=== PATIENT | female | born 1935 | race Caucasian/White ===

== ENCOUNTER 2017-11-26 13:12 | Observation (INO) ==
[2017-11-26] MEDS ORDERED: Acetaminophen 325 MG Tablet PO ONE (13:29)
--- NOTE | 2017-11-26 14:00 | CT ---
EXAM DATE: 11/26/2017 1:55 PM EDT AGE/SEX: 82 years / Female INDICATIONS: Headache for three cantor CLINICAL DATA: This is the patient's initial encounter. Patient reports that signs and symptoms have been present for 1 day and indicates a pain score of 5/10. MEDICAL/SURGICAL HISTORY: Alzheimer's disease. Hypertension. Diabetes. None. RADIATION DOSE: 45.48 CTDI (mGy) COMPARISON: No prior exams available for comparison. TECHNIQUE: CT of the head without contrast. Using automated exposure control and adjustment of the mA and/or kV according to patient size, radiation dose was kept as low as reasonably achievable to ob tain optimal diagnostic quality images. DICOM format image data is available electronically for revi ew and comparison. FINDINGS: Cerebrum: There is impressive diffuse atrophy. The ventricles are normal for age. No evidence of mi dline shift, mass lesion, hemorrhage or acute infarction. No extraaxial fluid collections are seen. Posterior Fossa: The cerebellum and brainstem are intact. The 4th ventricle is midline. The cerebe llopontine angle is unremarkable. Extracranial: The visualized portion of the orbits is intact. Skull: The calvaria is intact. No evidence of skull fracture. CONCLUSION: 1. Diffuse atrophy. No evidence of hemorrhage, edema, mass or mass effect. . Electronically signed by: Brant Mojica MD 11/26/2017 1:58 PM EDT
--- NOTE | 2017-11-26 14:34 | ED ---
HPI General Chief complaint: Headache Stated complaint: Head Pain Time Seen by Provider: 11/26/17 13:29 Source: patient and EMS Mode of arrival: EMS Limitations: other (Short-term memory loss, Alzheimer's disease.) History of Present Illness HPI narrative: Patient presents from an assisted living facility with a complaint of headache. EMS stated that they were called because of her elevated blood pressure. Patient has been normotensive for them. Patient does report that she has had a dull, frontal and occipital headache for several days. She denies any nausea, vomiting, dizziness, visual changes, weakness. Patient states that she has not been given anything for the pain. Patient reports her pain is a 6 out of 10. She denies any history of headaches. Symptom onset was gradual, symptoms are moderate. Unknown exacerbating factors. Patient has a past medical history significant for type 2 diabetes, hyperlipidemia, hypertension, Alzheimer's, depression. Related Data Home Medications Medication Instructions Recorded Confirmed aspirin 81 mg PO DAILY 11/26/17 11/26/17 cholecalciferol (vitamin D3) 2,000 unit PO DAILY 11/26/17 11/26/17 [Vitamin D3] cyanocobalamin (vitamin B-12) 1,000 mcg PO DAILY 11/26/17 11/26/17 [Vitamin B-12] donepezil 10 mg PO DAILY 11/26/17 11/26/17 escitalopram oxalate 20 mg PO DAILY 11/26/17 11/26/17 glipizide 5 mg PO DAILY 11/26/17 11/26/17 insulin glargine [Lantus Solostar 20 unit SUB-Q HS 11/26/17 11/26/17 U-100 Insulin] linagliptin [Tradjenta] 5 mg PO DAILY 11/26/17 11/26/17 memantine 10 mg PO BID 11/26/17 11/26/17 metformin 500 mg PO BID 11/26/17 11/26/17 nitrofurantoin monohyd/m-cryst 100 mg PO BID 11/26/17 11/26/17 pioglitazone 30 mg PO DAILY 11/26/17 11/26/17 ramipril 10 mg PO BID 11/26/17 11/26/17 simvastatin 20 mg PO QPM 11/26/17 11/26/17 Allergies Allergy/AdvReac Type Severity Reaction Status Date / Time No Known Allergies Allergy Verified 09/18/18 19:06 Review of Systems ROS: all other systems reviewed are negative [facility] Medical History Medical History Alzheimer's dementia (Acute) Diabetes (Acute) High cholesterol (Acute) Hypertension (Acute) Urinary tract infection (Acute) Social History Social History Substance History: No History of Abuse Smoking Status: Former smoker Tobacco Type: Cigarettes How Often Do You Have a Drink Containing Alcohol: Never Immunization History Tetanus Immunization: <5 Years Hx Influenza Vaccine This Season: No Exam Narrative Exam Narrative: GENERAL: SKIN: Focused skin assessment warm/dry. HEAD: Atraumatic. Normocephalic. EYES: Pupils equal and round. No scleral icterus. No injection or drainage. ENT: No nasal bleeding or discharge. Mucous membranes pink and moist. NECK: Trachea midline. No JVD. CARDIOVASCULAR: Regular rate and rhythm. No murmur appreciated. RESPIRATORY: No accessory muscle use. Clear to auscultation. Breath sounds equal bilaterally. GASTROINTESTINAL: Abdomen soft, non-tender, nondistended. Hepatic and splenic margins not palpable. MUSCULOSKELETAL: No obvious deformities. No clubbing. No cyanosis. No edema. NEUROLOGICAL: Awake and alert. No obvious cranial nerve deficits. Motor grossly within normal limits. Normal speech. PSYCHIATRIC: Appropriate mood and affect; insight and judgment normal. Course Initial Documented Vital Signs Temperature 98.5 F 11/26/17 13:25 Pulse Rate 55 L 11/26/17 13:25 Respiratory Rate 18 11/26/17 13:25 Blood Pressure 169/77 H 11/26/17 13:25 Pulse Oximetry 98 11/26/17 13:25 Last Documented Vital Signs Temperature 98.5 F 11/26/17 13:25 Pulse Rate 60 11/26/17 18:48 Respiratory Rate 18 11/26/17 18:48 Blood Pressure 184/74 H 11/26/17 18:48 Pulse Oximetry 97 11/26/17 18:19 Medical Decision Making AIDAN Attestation AIDAN supervised visit: Yes Attestation: The history, exam, and medical decision-making in the associated mid-level provider note were completed with my assistance. I reviewed and agree with the findings presented. I attest that I had a [id number] encounter with the patient on the same day, and personally performed and documented my assessment and findings in the medical record. *My assessment and Findings: 82-year-old woman with confusion, and high blood pressures in her nursing facility. I spoke with Dr. Lnae, prior to this patient's arrival. Patient has had multiple ED visits for the same. Now with recurrent high blood pressures up to 220 systolic reportedly associated with some confusion and headache. Initial blood pressures here were unremarkable despite no initial treatment. Dr. Hedrick is been titrating her medications. Initial normal workup. Spoke with Dr. Lane, and we spoke with the nursing supervisor insulation at the nursing facility again. They would like her observe due to the fluctuations in the blood pressure. Following this conversation blood pressure again was elevated in the 200s systolic. Patient will be admitted for observation. MDM Narrative Medical decision making narrative: Patient is an 82-year-old female presenting to the emergency department from her senior living facility for evaluation of hypertension and a headache. Labs and imaging ordered and pending. Patient's vital signs are stable on arrival to the emergency department. Per EMS report patient has been normotensive since they arrived. CT scan the brain shows atrophy, no acute findings. Labs reviewed, no acute abnormalities. This was discussed with son who stated that he wanted Dr. Hedrick called because patient had been to the emergency department 4 times over the weekend. Called the director radio at the [facility] who stated that patient had become more confused as recently which was 1 of the reasons patient was sent to the emergency room to several times. She also stated that prior to the confusion started patient was not sleeping at night for several days. The confusion was noticed by her daughter after the days of insomnia. Patient's is also under hospice care at a different facility which seems to be upsetting patient. They sent her because her blood pressure was elevated however her medications were adjusted yesterday, the director radio stated the patient's blood pressure was 157 systolic today prior to coming to the emergency department. Patient appears to be responding well to the blood pressure medication change. My attending physician spoke with Dr. Lane, due to the repetitive presentation to the emergency department patient will be admitted under observation for further evaluation. Medical Screen Exam Complete: Yes Emergency Medical Condition: Yes Differential Diagnosis Differential Diagnosis: TIA versus hemorrhage versus metabolic abnormality versus Alzheimer's versus hypertensive urgency versus other Lab Data Lab results reviewed: Yes I reviewed the patient's lab results. Result diagrams: 11/26/17 13:59 11/26/17 13:59 Lab Results 11/26/17 11/26/17 11/26/17 Range/Units 13:59 13:59 13:59 WBC 9.2 (4.0-11.0) th/mm3 RBC 4.62 (4.00-5.30) mil/mm3 Hgb 13.2 (11.6-15.3) gm/dL Hct 41.2 (35.0-46.0) % MCV 89.2 (80.0-100.0) fL MCH 28.7 (27.0-34.0) pg MCHC 32.1 (32.0-36.0) % RDW 14.8 (11.6-17.2) % Plt Count 186 (150-450) th/mm3 MPV 11.3 H (7.0-11.0) fL Neut % (Auto) 69.8 (16.0-70.0) % Lymph % (Auto) 17.7 (9.0-44.0) % [place] % (Auto) 5.8 (0.0-8.0) % Eos % (Auto) 5.9 H (0.0-4.0) % Baso % (Auto) 0.8 (0.0-2.0) % Neut # (Auto) 6.4 (1.8-7.7) th/mm3 Lymph # (Auto) 1.6 (1.0-4.8) th/mm3 [place] # (Auto) 0.5 (0.0-0.9) th/mm3 Eos # (Auto) 0.5 H (0.0-0.4) th/mm3 Baso # (Auto) 0.1 (0.0-0.2) th/mm3 WBC Differential . Differential Comment Auto diff final PT 10.5 (9.8-11.6) sec INR 1.0 Ratio APTT 26.6 (24.3-30.1) sec Sodium 144 (136-145) meq/L Potassium 4.1 (3.5-5.1) meq/L Chloride 110 H (98-107) meq/L Carbon Dioxide 27.9 (21.0-32.0) meq/L Anion Gap 6 (5-15) meq/L BUN 10 (7-18) mg/dL Creatinine 0.95 (0.50-1.00) mg/dL Estimated GFR 57 L (>89) mL/min Random Glucose 103 (74-106) mg/dL Calcium 9.0 (8.5-10.1) mg/dL Total Bilirubin 0.5 (0.2-1.0) mg/dL AST 17 (15-37) U/L ALT 16 (10-53) U/L Alkaline Phosphatase 65 (45-117) U/L Total Protein 7.1 (6.4-8.2) g/dL Albumin 3.7 (3.4-5.0) g/dL Urine Color (Yellw/Straw) Urine Clarity (Clear) Urine pH (5.0-8.5) Ur Specific [place] (1.002-1.035) Urine Protein (Neg-Trace) mg/dL Urine Glucose (UA) (Negative) mg/dL Urine Ketones (Negative) mg/dL Urine Occult Blood (Negative) Urine Nitrate (Negative) Urine Bilirubin (Negative) Urine Urobilinogen (Less than 2) mg/dL Ur Leukocyte Esterase (Negative) Urine RBC (0-3) /hpf Urine WBC (0-5) /hpf Ur Squamous Epith Cells (0-5) /hpf Urine Mucus (Occasional) /lpf Micro UA Comment Ur Microscopic Review Urine Culture Comments 11/26/17 Range/Units 14:55 WBC (4.0-11.0) th/mm3 RBC (4.00-5.30) mil/mm3 Hgb (11.6-15.3) gm/dL Hct (35.0-46.0) % MCV (80.0-100.0) fL MCH (27.0-34.0) pg MCHC (32.0-36.0) % RDW (11.6-17.2) % Plt Count (150-450) th/mm3 MPV (7.0-11.0) fL Neut % (Auto) (16.0-70.0) % Lymph % (Auto) (9.0-44.0) % [place] % (Auto) (0.0-8.0) % Eos % (Auto) (0.0-4.0) % Baso % (Auto) (0.0-2.0) % Neut # (Auto) (1.8-7.7) th/mm3 Lymph # (Auto) (1.0-4.8) th/mm3 [place] # (Auto) (0.0-0.9) th/mm3 Eos # (Auto) (0.0-0.4) th/mm3 Baso # (Auto) (0.0-0.2) th/mm3 WBC Differential Differential Comment PT (9.8-11.6) sec INR Ratio APTT (24.3-30.1) sec Sodium (136-145) meq/L Potassium (3.5-5.1) meq/L Chloride (98-107) meq/L Carbon Dioxide (21.0-32.0) meq/L Anion Gap (5-15) meq/L BUN (7-18) mg/dL Creatinine (0.50-1.00) mg/dL Estimated GFR (>89) mL/min Random Glucose (74-106) mg/dL Calcium (8.5-10.1) mg/dL Total Bilirubin (0.2-1.0) mg/dL AST (15-37) U/L ALT (10-53) U/L Alkaline Phosphatase (45-117) U/L Total Protein (6.4-8.2) g/dL Albumin (3.4-5.0) g/dL Urine Color Sally (Yellw/Straw) Urine Clarity Hazy H (Clear) Urine pH 5.0 (5.0-8.5) Ur Specific [place] 1.023 (1.002-1.035) Urine Protein Negative (Neg-Trace) mg/dL Urine Glucose (UA) Negative (Negative) mg/dL Urine Ketones 20 (Negative) mg/dL Urine Occult Blood Negative (Negative) Urine Nitrate Negative (Negative) Urine Bilirubin Negative (Negative) Urine Urobilinogen 2.0 H (Less than 2) mg/dL Ur Leukocyte Esterase Negative (Negative) Urine RBC Less than 1 (0-3) /hpf Urine WBC 1 (0-5) /hpf Ur Squamous Epith Cells 2 (0-5) /hpf Urine Mucus Few H (Occasional) /lpf Micro UA Comment Culture not ind Ur Microscopic Review Not Reportable Urine Culture Comments Culture not ind Imaging Data Radiologist's impression: Head CT 11/26/17 13:29 CONCLUSION: 1. Diffuse atrophy. No evidence of hemorrhage, edema, mass or mass effect. . Discharge Plan Discharge Disposition Patient Disposition: 30 Still Patient Discharge Condition Condition: Stable Discharge Details Diagnosis: Hypertension Physicians Team ED Provider: Brant Vizcaino ED Midlevel Provider: Sammi Blanca Primary Care Provider: UNKNOWN, Attending Provider: Raciel Álvarez Status ED Status: Admitted Observation Patient
[2017-11-26 15:22] LABS: Baso # (Auto) 0.1 th/mm3 (0.0-0.2); Baso % (Auto) 0.8 % (0.0-2.0); Eos # (Auto) 0.5 th/mm3 (0.0-0.4); Eos % (Auto) 5.9 % (0.0-4.0); Hematocrit 41.2 % (35.0-46.0); Hemoglobin 13.2 gm/dL (11.6-15.3); Lymph # (Auto) 1.6 th/mm3 (1.0-4.8); Lymph % (Auto) 17.7 % (9.0-44.0); Mean Corpuscular HGB Conc 32.1 % (32.0-36.0); Mean Corpuscular Hemoglobin 28.7 pg (27.0-34.0); Mean Corpuscular Volume 89.2 fL (80.0-100.0); Mean Platelet Volume 11.3 fL (7.0-11.0); Mono # (Auto) 0.5 th/mm3 (0.0-0.9); Mono % (Auto) 5.8 % (0.0-8.0); Neut # (Auto) 6.4 th/mm3 (1.8-7.7); Neut % (Auto) 69.8 % (16.0-70.0); Platelet Count 186 th/mm3 (150-450); Red Blood Count 4.62 mil/mm3 (4.00-5.30); Red Cell Distribution Width 14.8 % (11.6-17.2); White Blood Count 9.2 th/mm3 (4.0-11.0)
[2017-11-26 15:28] LABS: Bilirubin,Urine Negative (Negative); Clarity,Urine Hazy (Clear); Color,Urine Amber (Yellw/Straw); Glucose,Urine (UA) Negative (Negative); Leukocyte Esterase,Urine Negative (Negative); Mucus,Urine Few /lpf (Occasional); Nitrite,Urine Negative (Negative); Specific Gravity,Urine 1.023 (1.002-1.035); Squamous Epithelial Cell,Urine 2 /hpf (0-5)
[2017-11-26 15:39] LABS: Activated Partial Thrombo Time 26.6 sec (24.3-30.1); Prothrombin Time 10.5 sec (9.8-11.6)
[2017-11-26 15:49] LABS: Alanine Aminotransferase 16 U/L (10-53); Albumin 3.7 g/dL (3.4-5.0); Anion Gap 6 meq/L (5-15); Aspartate Aminotransferase 17 U/L (15-37); Blood Urea Nitrogen 10 mg/dL (7-18); Carbon Dioxide 27.9 meq/L (21.0-32.0); Chloride 110 meq/L (98-107); Glomerular Filtration Rate 57 mL/min (>89); Glucose,Random 103 mg/dL (74-106); Potassium 4.1 meq/L (3.5-5.1); Sodium 144 meq/L (136-145)
[2017-11-26 15:50] LABS: Alkaline Phosphatase 65 U/L (45-117); Total Protein 7.1 g/dL (6.4-8.2)
[2017-11-26] MEDS ORDERED: Dextrose 50% in Water 50 ML Vial IV.PUSH PRN (17:35)
[2017-11-26] MEDS ORDERED: Enoxaparin Inj 40 MG/0.4 ML Syringe SQ SCH (20:00)
--- NOTE | 2017-11-26 20:38 | P.HP ---
History of Present Illness Service: [facility] Primary Care Physician: UNKNOWN History of Present Illness: 82-year-old female with a past medical history significant for Alzheimer's dementia, diabetes, hypertension and hyperlipidemia presents to the emergency department for the evaluation of a headache. The patient denies any associated blurry vision. She reports the headache starts in the frontal region and radiates down to her jaw. She denies any confusion or weakness. She was hypertensive to 200/78 on arrival to the emergency department. No chest pain or shortness of breath. No abdominal pain. Review of Systems All other systems reviewed negative except as stated in [facility] - History History Provided By: Patient - Medical History Medical History: Medical History (Last Reviewed 11/26/17 @ 20:30 by Thea Irvin MD) Alzheimer's dementia Diabetes High cholesterol Hypertension Urinary tract infection - Surgical History Surgical History: Surgical History (Last Updated 11/26/17 @ 20:30 by Thea Irvin MD) No history of previous surgery - Family History Family History: Family History (Last Updated 11/26/17 @ 20:30 by Thea Irvin MD) Other Family history normal - Tobacco History Smoking Status: Former smoker Tobacco Type: Cigarettes - Alcohol History How Often Do You Have a Drink Containing Alcohol: Never - Substance Use History Substance History: No History of Abuse - Immunization History Tetanus Immunization: <5 Years Hx Influenza Vaccine This Season: No Medications and Allergies Active Medications: Active Medications Al Hydroxide/Mg Hydroxide (Milk Of Gary Liq) 30 ml PO Q12H PRN PRN Reason: Mild Constipation Aspirin (Aspirin Chew) 81 mg PO DAILY [facility] Clonidine HCl (Catapres) 0.1 mg PO Q6H PRN PRN Reason: SBP>160, DBP>90 Last Admin: 11/26/17 18:19 Dose: 0.1 mg Dextrose (D50w Vial) 50 ml IV.PUSH UNSCH PRN PRN Reason: PER HYPOGLYCEMIA PROTOCOL Donepezil HCl (Aricept) 10 mg PO DAILY [facility] Enoxaparin Sodium (Lovenox Inj) 40 mg SQ Q24H [facility] Last Admin: 11/26/17 20:10 Dose: 40 mg Escitalopram Oxalate (Lexapro) 20 mg PO DAILY [facility] Glucagon (Glucagon Inj) 1 mg OTHER PRN PRN PRN Reason: for Hypoglycemia Protocol Insulin Aspart (Novolog Insulin Correctional Sugar Inj) 0 unit SQ ACHS [facility]; Protocol Memantine (Namenda) 10 mg PO BID [facility] Ondansetron HCl (Zofran Inj) 4 mg IV.PUSH Q6H PRN PRN Reason: NAUSEA OR VOMITING Ramipril (Altace) 10 mg PO BID [facility] Sodium Chloride (Ns Flush) 2 ml IV.FLUSH PRN PRN PRN Reason: FLUSH AFTER USING IV ACCESS Allergies Allergy/AdvReac Type Severity Reaction Status Date / Time No Known Allergies Allergy Verified 11/26/17 19:06 Home Medications Medication Instructions Recorded Confirmed Type aspirin 81 mg PO DAILY 11/26/17 11/26/17 History cholecalciferol (vitamin D3) 2,000 unit PO DAILY 11/26/17 11/26/17 History [Vitamin D3] cyanocobalamin (vitamin B-12) 1,000 mcg PO DAILY 11/26/17 11/26/17 History [Vitamin B-12] donepezil 10 mg PO DAILY 11/26/17 11/26/17 History escitalopram oxalate 20 mg PO DAILY 11/26/17 11/26/17 History glipizide 5 mg PO DAILY 11/26/17 11/26/17 History insulin glargine [Lantus Solostar 20 unit SUB-Q HS 11/26/17 11/26/17 History U-100 Insulin] linagliptin [Tradjenta] 5 mg PO DAILY 11/26/17 11/26/17 History memantine 10 mg PO BID 11/26/17 11/26/17 History metformin 500 mg PO BID 11/26/17 11/26/17 History nitrofurantoin monohyd/m-cryst 100 mg PO BID 11/26/17 11/26/17 History pioglitazone 30 mg PO DAILY 11/26/17 11/26/17 History ramipril 10 mg PO BID 11/26/17 11/26/17 History simvastatin 20 mg PO QPM 11/26/17 11/26/17 History Exam Vital signs: Vital Signs 11/26/17 13:25 11/26/17 13:59 11/26/17 17:12 Temperature 98.5 F Pulse Rate 55 L 62 Respiratory Rate 18 18 Blood Pressure 167/77 H 200/78 H Pulse Oximetry 98 97 98 11/26/17 18:19 11/26/17 18:48 11/26/17 19:50 Temperature Pulse Rate 60 60 Respiratory Rate 20 18 Blood Pressure 190/84 H 184/74 H 167/72 H Pulse Oximetry 97 Intake & Output 11/26/17 11/26/17 11/27/17 06:59 18:59 06:59 Weight 110 kg Narrative: Gen.: No acute distress Head: Normocephalic. Atraumatic. EENT: Pupils equal round and reactive to light. Nose without drainage. Airway intact. Throat without injection. Cardiovascular: Regular rate and rhythm. No murmurs, rubs or gallops. Respiratory: Lungs clear to auscultation bilaterally. No wheezes or rhonchi. Abdomen: Soft, nontender, nondistended. No peritoneal signs. Musculoskeletal: No gross deformities. No edema. Skin: No obvious rashes or erythema. Neuro: Sensory and motor grossly intact. Cranial nerves II through XII grossly intact. Results - Labs CBC & Chem 7: 11/26/17 13:59 11/26/17 13:59 Labs: Laboratory Results - last 24 hr 11/26/17 11/26/17 11/26/17 13:59 13:59 13:59 WBC 9.2 RBC 4.62 Hgb 13.2 Hct 41.2 MCV 89.2 MCH 28.7 MCHC 32.1 RDW 14.8 Plt Count 186 MPV 11.3 H Neut % (Auto) 69.8 Lymph % (Auto) 17.7 [place] % (Auto) 5.8 Eos % (Auto) 5.9 H Baso % (Auto) 0.8 Neut # (Auto) 6.4 Lymph # (Auto) 1.6 [place] # (Auto) 0.5 Eos # (Auto) 0.5 H Baso # (Auto) 0.1 WBC Differential . Differential Comment Auto diff final PT 10.5 INR 1.0 APTT 26.6 Sodium 144 Potassium 4.1 Chloride 110 H Carbon Dioxide 27.9 Anion Gap 6 BUN 10 Creatinine 0.95 Estimated GFR 57 L Random Glucose 103 Calcium 9.0 Total Bilirubin 0.5 AST 17 ALT 16 Alkaline Phosphatase 65 Total Protein 7.1 Albumin 3.7 Urine Color Urine Clarity Urine pH Ur Specific [place] Urine Protein Urine Glucose (UA) Urine Ketones Urine Occult Blood Urine Nitrate Urine Bilirubin Urine Urobilinogen Ur Leukocyte Esterase Urine RBC Urine WBC Ur Squamous Epith Cells Urine Mucus Micro UA Comment Ur Microscopic Review Urine Culture Comments 11/26/17 14:55 WBC RBC Hgb Hct MCV MCH MCHC RDW Plt Count MPV Neut % (Auto) Lymph % (Auto) [place] % (Auto) Eos % (Auto) Baso % (Auto) Neut # (Auto) Lymph # (Auto) [place] # (Auto) Eos # (Auto) Baso # (Auto) WBC Differential Differential Comment PT INR APTT Sodium Potassium Chloride Carbon Dioxide Anion Gap BUN Creatinine Estimated GFR Random Glucose Calcium Total Bilirubin AST ALT Alkaline Phosphatase Total Protein Albumin Urine Color Sally Urine Clarity Hazy H Urine pH 5.0 Ur Specific [place] 1.023 Urine Protein Negative Urine Glucose (UA) Negative Urine Ketones 20 Urine Occult Blood Negative Urine Nitrate Negative Urine Bilirubin Negative Urine Urobilinogen 2.0 H Ur Leukocyte Esterase Negative Urine RBC Less than 1 Urine WBC 1 Ur Squamous Epith Cells 2 Urine Mucus Few H Micro UA Comment Culture not ind Ur Microscopic Review Not Reportable Urine Culture Comments Culture not ind - Imaging Impressions Head CT 11/26/17 13:29 CONCLUSION: 1. Diffuse atrophy. No evidence of hemorrhage, edema, mass or mass effect. . Caprini VTE Risk Assessment Caprini VTE Risk Assessment: Moderate/High Risk (score >= 2) Caprini Risk Assessment Model: Point Value = 1 Point Value = 2 Point Value = 3 Point Value = 5 Age 41-60 Minor surgery BMI > 25 kg/m2 Swollen legs Varicose veins or History of unexplained or recurrent spontaneous Oral contraceptives or hormone replacement Sepsis (< 1 month) Serious lung disease, including pneumonia (< 1 month) Abnormal pulmonary function Acute myocardial infarction Congestive heart failure (< 1 month) History of inflammatory bowel disease Medical patient at bed rest Age 61-74 Arthroscopic surgery Major open surgery (> 45 min) Laparoscopic surgery (> 45 min) Malignancy Confined to bed (> 72 hours) Immobilizing plaster cast Central venous access Age >= 75 History of VTE Family history of VTE Factor V Leiden Prothrombin [id number] Lupus anticoagulant Anticardiolipin antibodies Elevated serum homocysteine Heparin-induced thrombocytopenia Other congenital or acquired thrombophilia Stroke (< 1 month) Elective arthroplasty Hip, pelvis, or leg fracture Acute spinal cord injury (< 1 month) Prophylaxis Regimen: Total Risk Factor Score Risk Level Prophylaxis Regimen 0-1 Low Early ambulation 2 Moderate Order ONE of the following: *Sequential Compression Device (SCD) *Heparin 5000 units SQ BID 3-4 Higher Order ONE of the following medications: *Heparin 5000 units SQ TID *Enoxaparin/Lovenox 40 mg SQ daily (WT < 150 kg, CrCl > 30 mL/min) *Enoxaparin/Lovenox 30 mg SQ daily (WT < 150 kg, CrCl > 10-29 mL/min) *Enoxaparin/Lovenox 30 mg SQ BID (WT < 150 kg, CrCl > 30 mL/min) AND/OR *Sequential Compression Device (SCD) 5 or more Highest Order ONE of the following medications: *Heparin 5000 units SQ TID (Preferred with Epidurals) *Enoxaparin/Lovenox 40 mg SQ daily (WT < 150 kg, CrCl > 30 mL/min) *Enoxaparin/Lovenox 30 mg SQ daily (WT < 150 kg, CrCl > 10-29 mL/min) *Enoxaparin/Lovenox 30 mg SQ BID (WT < 150 kg, CrCl > 30 mL/min) AND *Sequential Compression Device (SCD) Assessment and Plan - Plan Assessment/plan: 1. Hypertensive urgency/headache Patient reports compliance with her blood pressure medications Only on ramipril Clonidine as needed May need to add second agent depending on patient's blood pressure trends 2. Diabetes Holding home oral anti-hyperglycemics Sliding-scale insulin Monitor blood glucose 3. Dementia Continue home medications FEN Diabetic diet Electrolytes: Monitor and replete as needed Lovenox
[2017-11-26] MEDS: Insulin NovoLOG Aspart Correctional Sugar Inj SQ SCH (21:05)
[2017-11-26] MEDS: Ramipril 5 MG Capsule PO SCH (21:05)
[2017-11-27 07:47] VITALS: TEMP 98.2
[2017-11-27] MEDS: Insulin NovoLOG Aspart Correctional Sugar Inj SQ SCH (09:39)
[2017-11-27] MEDS: Ramipril 5 MG Capsule PO SCH (09:40)
--- NOTE | 2017-11-27 10:08 | P.PN ---
Subjective Interval history: Follow-up for headache, hypertensive urgency. Patient seen sitting upright on the side of the bed, finishing up breakfast. She reports feeling much better today. She does have some obvious dementia throughout conversation, however is currently oriented to self, a hospital in [place], [facility], and November 2017. She is able to tell me that she lives at [facility] in the [facility]. She reports compliance with her medications. She states the LELA assists with giving her medications, and stays in the room until she finishes them. She admits that she has been under more stress recently because her is now on hospice. She is able to tell me that she came to the hospital yesterday because she had a bad headache. She states her headache is now resolved. She denies any blurred vision, speech difficulties, unilateral numbness/weakness. She wants to go back to her [facility]. She has no other medical complaints at this time. Physical Exam Vital signs: Vital Signs 11/26/17 13:25 11/26/17 13:59 11/26/17 17:12 Temperature 98.5 F Pulse Rate 55 L 62 Respiratory Rate 18 18 Blood Pressure 167/77 H 200/78 H Pulse Oximetry 98 97 98 11/26/17 18:19 11/26/17 18:48 11/26/17 19:50 Temperature Pulse Rate 60 60 Respiratory Rate 20 18 Blood Pressure 190/84 H 184/74 H 167/72 H Pulse Oximetry 97 11/26/17 20:00 11/26/17 23:57 11/27/17 04:00 Temperature 97.8 F 98.2 F 97.6 F Pulse Rate 61 54 L 53 L Respiratory Rate 16 16 16 Blood Pressure 158/73 H 120/59 L 103/53 L Pulse Oximetry 98 95 93 L 11/27/17 07:45 Temperature 98.2 F Pulse Rate 55 L Respiratory Rate 18 Blood Pressure 139/65 Pulse Oximetry 100 Intake & Output 11/26/17 11/27/17 11/27/17 18:59 06:59 18:59 Intake Total 240 / 240 Balance 240 / 240 Weight 110 kg 110.223 kg Intake: Oral 240 / 240 Other: # Voids 1 Weight On Admission 110 kg Narrative: GENERAL: Well-nourished, well-developed pleasant elderly female patient in [facility]. SKIN: Warm and dry. No rash. HEENT: Normocephalic. Atraumatic. Pupils equal and round. Mucous membranes pink and moist. CARDIOVASCULAR: Regular rate and rhythm. No murmur appreciated. RESPIRATORY: No accessory muscle use. Clear to auscultation. Breath sounds equal bilaterally. GASTROINTESTINAL: Abdomen soft, non-tender, nondistended. Normoactive bowel sounds x4. MUSCULOSKELETAL: No obvious deformities. Extremities without clubbing, cyanosis , or edema. NEUROLOGICAL: Awake and alert. No obvious cranial nerve deficits. Motor grossly within normal limits. Moving all extremities spontaneously. Normal speech. PSYCHIATRIC: Appropriate mood and affect; insight and judgment fair Results - Labs CBC & Chem 7: 11/26/17 13:59 11/26/17 13:59 Laboratory Results - last 24 hr 11/26/17 11/26/17 11/26/17 13:59 13:59 13:59 WBC 9.2 RBC 4.62 Hgb 13.2 Hct 41.2 MCV 89.2 MCH 28.7 MCHC 32.1 RDW 14.8 Plt Count 186 MPV 11.3 H Neut % (Auto) 69.8 Lymph % (Auto) 17.7 [place] % (Auto) 5.8 Eos % (Auto) 5.9 H Baso % (Auto) 0.8 Neut # (Auto) 6.4 Lymph # (Auto) 1.6 [place] # (Auto) 0.5 Eos # (Auto) 0.5 H Baso # (Auto) 0.1 WBC Differential . Differential Comment Auto diff final PT 10.5 INR 1.0 APTT 26.6 Sodium 144 Potassium 4.1 Chloride 110 H Carbon Dioxide 27.9 Anion Gap 6 BUN 10 Creatinine 0.95 Estimated GFR 57 L POC Glucose Random Glucose 103 Calcium 9.0 Total Bilirubin 0.5 AST 17 ALT 16 Alkaline Phosphatase 65 Total Protein 7.1 Albumin 3.7 Urine Color Urine Clarity Urine pH Ur Specific Taylor Urine Protein Urine Glucose (UA) Urine Ketones Urine Occult Blood Urine Nitrate Urine Bilirubin Urine Urobilinogen Ur Leukocyte Esterase Urine RBC Urine WBC Ur Squamous Epith Cells Urine Mucus Micro UA Comment Ur Microscopic Review Urine Culture Comments 11/26/17 11/26/17 11/27/17 14:55 20:53 09:27 WBC RBC Hgb Hct MCV MCH MCHC RDW Plt Count MPV Neut % (Auto) Lymph % (Auto) [place] % (Auto) Eos % (Auto) Baso % (Auto) Neut # (Auto) Lymph # (Auto) [place] # (Auto) Eos # (Auto) Baso # (Auto) WBC Differential Differential Comment PT INR APTT Sodium Potassium Chloride Carbon Dioxide Anion Gap BUN Creatinine Estimated GFR POC Glucose 104 115 H Random Glucose Calcium Total Bilirubin AST ALT Alkaline Phosphatase Total Protein Albumin Urine Color Sally Urine Clarity Hazy H Urine pH 5.0 Ur Specific Taylor 1.023 Urine Protein Negative Urine Glucose (UA) Negative Urine Ketones 20 Urine Occult Blood Negative Urine Nitrate Negative Urine Bilirubin Negative Urine Urobilinogen 2.0 H Ur Leukocyte Esterase Negative Urine RBC Less than 1 Urine WBC 1 Ur Squamous Epith Cells 2 Urine Mucus Few H Micro UA Comment Culture not ind Ur Microscopic Review Not Reportable Urine Culture Comments Culture not ind - Imaging Impressions Head CT 11/26/17 13:29 CONCLUSION: 1. Diffuse atrophy. No evidence of hemorrhage, edema, mass or mass effect. . Assessment and Plan - Plan 82-year-old female with a past medical history significant for Alzheimer's dementia, diabetes, hypertension and hyperlipidemia presents to the emergency department for the evaluation of a headache. She was hypertensive to 200/78 on arrival to the emergency department. Hypertensive urgency/headache -Patient reports compliance with her blood pressure medications, has assistance with administering meds at [facility] -Continue patient's ramipril 10mg bid -Clonidine as needed -BP much better controlled today with systolic 100-130s, headache resolved, stable for discharge -Recommended to keep a BP log and follow up with PCP Diabetes: chronic -Holding home oral anti-hyperglycemics -Sliding-scale insulin -Monitor blood glucose Dementia: chronic -Continue home medications DVT Prophylaxis: Lovenox Discharge Planning: Discharge patient to [facility] Condition on discharge: Stable Heart Healthy/Diabetic Diet as tolerated Ad Wendy activity Rx written: no new meds Follow-up with primary care physician within 1 week
[2017-11-27 12:04] VITALS: BP 147/65; PULSE 58; RESP 20; O2SAT 93
== END 2017-11-27 14:07 ==
LOC: NEPE 13:12 → NEDA 13:12 → NEPGCP 20:27
PROVIDERS: ADMIT Hospitalist; ATTEND Hospitalist